=== PATIENT | male | born 1995 | race Caucasian/White ===

== ENCOUNTER 2019-05-20 08:35 | Outpatient (CLI) | payer SELFPAY | END 2019-05-20 08:36 | disposition critical access hospital (66) | LOC: EMS 08:35 | PROVIDERS: ATTEND Surgery | DX: R40.20 Unspecified coma (principal) | CPT/HCPCS: A0425; A0427 ==

== ENCOUNTER 2019-05-20 09:30 | Emergency (ER) | payer SELFPAY ==
[2019-05-20] MEDS ORDERED: SODIUM CHLORIDE 0.9% 1,000 ML IV STA (09:36)
--- NOTE | 2019-05-20 09:42 | ED Physician Documentation ---
History of Present Illness - Stated complaint Stated Complaint: OD - Chief complaint Chief Complaint: General - Additonal information Additional information: This is a 23-year-old male with a history of back pain after compression fractures last year, who presents After an accidental overdose. Patient states that this morning he took a 1/2 tablet of 30 mg Percocet that his friend bought off the street, he took this for his chronic back pain, and about 30 minutes prior to his arrival here he was in a work truck with his Colleague, when he suddenly slumped over. His colleague did not feel pulses so he pulled him out of the truck and began CPR and EMS was called. When EMS arrived he had received CPR for around 9 minutes, he was found to have agonal respirations and palpable pulses, he had miotic pupils. He was given 2 mg of Narcan and immediately awoke. He had some vomiting she also received 4 mg of Zofran. Patient is alert, oriented, he has some chest soreness, and feels slightly dizzy, but denies other complaints. He denies taking any other drugs. He denies any intent to harm himself. Review of Systems Constitutional: denies: Fever Throat: denies: Oral lesions / sores Cardiac: reports: Other (CHest soreness) Respiratory: denies: Dyspnea GI: reports: Nausea, Vomiting : denies: Dysuria Skin: denies: Rash Neurologic: denies: Focal weakness Psychiatric: denies: Suicidal PD PAST MEDICAL HISTORY - Past Medical History Musculoskeletal: Other (Compression fractures of spine) - Allergies Allergies/Adverse Reactions: Allergies Allergy/AdvReac Type Severity Reaction Status Date / Time No Known Drug Allergies Allergy Verified 05/20/19 09:32 - Living Situation Living Arrangement: reports: At home - Social History Substance Use and Type: Prescription Pills - Family History Family history: reports: Non contributory PD ED PE NORMAL - Vitals Vital signs reviewed: Yes - General General: Alert and oriented X 3, No acute distress - HEENT HEENT: Atraumatic, Other (Pupils 2mm and reactive bilaterally) - Neck Neck: Supple, no meningeal sign - Cardiac Cardiac: RRR - Respiratory Respiratory: No respiratory distress, Clear bilaterally - Abdomen Abdomen: Soft, Non tender, Non distended - Derm Derm: Warm and dry - Extremities Extremities: No deformity - Neuro Neuro: Alert and oriented X 3, income auditor 2-12 intact, No motor deficit, No sensory deficit, Normal speech - Psych Psych: Normal mood, Normal affect Results - Vitals Vitals: Vital Signs - 24 hr 05/20/19 05/20/19 05/20/19 09:32 10:33 11:22 Temperature 36.2 C L Heart Rate 69 80 65 Respiratory 15 16 17 Rate Blood Pressure 114/84 H 129/88 H 114/70 O2 Saturation 99 97 100 05/20/19 05/20/19 11:59 13:26 Temperature 96.6 C H Heart Rate 78 72 Respiratory 16 14 Rate Blood Pressure 127/78 101/73 O2 Saturation 95 99 Oxygen O2 Source Room air - EKG (time done) 9:58 Other comments: Other comments (Rate 70, rhythm sinus, axis normal. There are no ST segment elevations or depressions, no abnormal T wave inversions. Intervals within normal limits.) - Labs Labs: Laboratory Tests 05/20/19 05/20/19 09:46 09:46 WBC 9.2 RBC 4.33 L Hgb 13.2 L Hct 39.3 L MCV 90.8 MCH 30.5 MCHC 33.6 RDW 12.3 Plt Count 306 MPV 9.0 Neut # (Auto) 6.8 H Lymph # (Auto) 1.7 Kimball # (Auto) 0.5 Eos # (Auto) 0.1 Baso # (Auto) 0.0 Absolute Nucleated RBC 0.00 Nucleated RBC % 0.0 Sodium 140 Potassium 3.9 Chloride 105 Carbon Dioxide 27 Anion Gap 8.0 BUN 20 Creatinine 1.0 Estimated GFR (MDRD) 92 Glucose 112 H Calcium 8.7 Total Bilirubin 0.5 AST 55 H ALT 56 Alkaline Phosphatase 59 Total Protein 6.9 Albumin 4.0 Globulin 2.9 Albumin/Globulin Ratio 1.4 Lipase 28 - Rads (name of study) CXR Radiology: Other (No acute cardiopulmonary abnormality) PD MEDICAL DECISION MAKING - ED course Complexity details: considered differential (Opioid overdose, dysrhtymia, rib fracture, aspiration, pneumothorax) ED course: On arrival patient is alert, oriented, with no neurologic deficits and saturating in the high 90s on room air. He has some mild redness on his sternum without crepitus. CXR shows no pneumothorax or displaced fractures. EKG is unremarkable. Labs unrevealing other than mildly elevated AST - patient has no abdominal tenderness. This may be from alcohol use. Pt was observed for over 3 hours, remained awake, without hypoxia or somnolence. His chest discomfort was minimal and patient was able to urinate, ambulate, and felt very well. I discussed the risk of opioid use, particularly pills/drugs bought on the street which have varying strengths. I recommended he abstain from all drug use. Patient is appreciative of the care he received,, receptive to our counseling, and seems appropriately disturbed by his accidental overdose. I discussed return precuations and patient was discharged home in the care of his family. Departure - Departure Disposition: , Self Care Clinical Impression: Narcotic overdose Qualifiers: Encounter type: initial encounter Injury intent: accidental or unintentional Qualified Code(s): T40.601A - Poisoning by unspecified narcotics, accidental (unintentional), initial encounter Condition: Good Instructions: ED Overdose Opiate Comments: You were seen today after an accidental overdose of narcotic medications. Please do not take any narcotics that are not prescribed to you. If you develop any sleepiness or confusion, return to the emergency department immediately. Make sure that someone is watching you at home for the next day. Follow-up with your primary care provider soon as possible. Discharge Date/Time: 05/20/19 13:27
[2019-05-20 09:51] LABS: BASOPHILS % (AUTO) 0.4 %; EOSINOPHILS # (AUTO) 0.1 10^3/uL (0.0-0.7); HGB - HEMOGLOBIN 13.2 g/dL (14.0-18.0); LYMPHOCYTES # (AUTO) 1.7 10^3/uL (1.5-3.5); LYMPHOCYTES % (AUTO) 18.5 %; MEAN CORPUSCULAR HEMOGLOBIN 30.5 pg (27.0-31.0); MEAN CORPUSCULAR HGB CONC 33.6 g/dL (32.0-36.0); MEAN CORPUSCULAR VOLUME 90.8 fL (80.0-94.0); MONOCYTES # (AUTO) 0.5 10^3/uL (0.0-1.0); MONOCYTES % (AUTO) 5.1 %; NEUTROPHILS # (AUTO) 6.8 10^3/uL (1.5-6.6); NEUTROPHILS % (AUTO) 74.2 %; PLT - PLATELET COUNT 306 10^3/uL (130-450); RED BLOOD COUNT 4.33 10^6/uL (4.70-6.10); RED CELL DISTRIBUTION WIDTH 12.3 % (12.0-15.0); WHITE BLOOD COUNT 9.2 x10^3/uL (4.8-10.8)
[2019-05-20 10:13] LABS: ALBUMIN/GLOBULIN RATIO 1.4 (1.0-2.2); BILIRUBIN,TOTAL 0.5 mg/dL (0.2-1.0); CALCIUM 8.7 mg/dL (8.5-10.3); TOTAL PROTEIN 6.9 g/dL (6.7-8.2)
--- NOTE | 2019-05-20 10:16 | XRAY Report ---
Reason: CPR, assess for pneumo, fx Procedure Date: 05/20/2019 Accession Number: [id number] / [id number] Procedure: XR - Chest 2 View X-Ray CPT Code: 21346 FULL RESULT: EXAM: CHEST RADIOGRAPHY EXAM DATE: 05/20/2019 10:00 AM. CLINICAL HISTORY: CPR, assess for pneumo, fx. COMPARISON: None. TECHNIQUE: 2 views. FINDINGS: Lungs/Pleura: No focal opacities evident. No pleural effusion. No pneumothorax. Normal volumes. Mediastinum: Heart and mediastinal contours are unremarkable. Other: None. IMPRESSION: 1. Normal 2-view chest radiography. 2. No pneumothorax or rib fracture evident. RADIA
[2019-05-20] MEDS ORDERED: IBUPROFEN 600 MG TABLET PO STA (10:24)
[2019-05-20] MEDS ORDERED: ACETAMINOPHEN 325 MG TABLET PO STA (10:24)
[2019-05-20 13:27] VITALS: BP 101/73
== END 2019-05-20 13:27 | disposition home or self-care (01) ==
LOC: ED 09:30
DX: T40.2X1A Poisoning by other opioids, accidental (unintentional), initial encounter (principal); Y92.89 Other specified places as the place of occurrence of the external cause; M54.9 Dorsalgia, unspecified; G89.29 Other chronic pain
CPT/HCPCS: 36415; 51798; 71046; 80053; 83690; 85025; 93005; 96360; 99284; A9270

== ENCOUNTER 2019-10-08 13:08 | Outpatient (CLI) | payer OTHER | END 2019-10-08 23:59 | disposition short-term general hospital (02) | LOC: EMS 13:08 | PROVIDERS: ATTEND Surgery | DX: S31.119A Laceration without foreign body of abdominal wall, unspecified quadrant without penetration into peritoneal cavity, initial encounter (principal); W29.3XXA Contact with powered garden and outdoor hand tools and machinery, initial encounter; Y93.89 Activity, other specified; Y92.89 Other specified places as the place of occurrence of the external cause; Y99.0 Civilian activity done for income or pay | CPT/HCPCS: A0425; A0427 ==

== ENCOUNTER 2022-10-27 13:51 | Emergency (ER) | payer OTHER ==
[2022-10-27 14:00] VITALS: BP 135/70
[2022-10-27] MEDS ORDERED: AMOX/CLAV 875 MG/125 MG TABLET PO STA (14:38)
[2022-10-27] MEDS ORDERED: BUFFERED LIDOCAINE 10 ML SYRINGE SUBQ STA (14:38)
--- NOTE | 2022-10-27 14:40 | ED Physician Documentation ---
PD HPI WOUND RECHECK - Stated complaint Stated Complaint: DOG BITE RT HAND - Chief complaint Chief Complaint: Wound - Histroy obtained from History obtained from: Patient (26-year-old right-handed gentleman who is up-to-date on tetanus was helping in a friend's yard and the friend's dog bit him on the right hand just prior to arrival. No other injuries.) PD PAST MEDICAL HISTORY - Past Medical History Musculoskeletal: Other (Compression fractures of spine) - Present Medications Home Medications: Ambulatory Orders Medication Instructions Recorded Confirmed Amox/Clav 875/125 [Augmentin] 1 each PO Q12H #10 tablet 10/27/22 - Allergies Allergies/Adverse Reactions: Allergies Allergy/AdvReac Type Severity Reaction Status Date / Time No Known Drug Allergies Allergy Verified 10/27/22 14:00 PD ED PE NORMAL - Vitals Vital signs reviewed: Yes - General General: Alert and oriented X 3, No acute distress - Extremities Extremities: Other (SEE MDM -TEXT BOX TOO SMALL) - Neuro Neuro: Alert and oriented X 3 Results - Vitals Vitals: Vital Signs - 24 hr 10/27/22 13:56 Temperature 36.1 C L Heart Rate 82 Respiratory 16 Rate Blood Pressure 135/70 H O2 Saturation 95 Oxygen O2 Source Room air - Rads (name of study) Three-view x-ray of the right hand is unremarkable. Relevant Findings:: Final report received, EMP independent interpretation of test Procedures - Laceration (location) Right palm Length in cm: 1.5 Wound type: Linear, Into subcut fat Neurovascular status: Sensory intact, Motor intact, Vascular intact Tendon involvement: Tendon intact Anesthesia: Lidocaine 1%, With bicarb Wound preparation: Chlorhexadine, Irrigated copiously NS Skin layer closure: Nylon, Interrupted, Size #-0 - enter number (4-0), Sutures - enter # (2) Other: Tetanus UTD PD Medical Decision Making - ED course ED course: RIGHT HAND EXAM: There are couple very small puncture wounds on the dorsum of the hand. He is tender at the tip of the fourth finger with a small subungual hematoma and a blood blister on the tuft. There is couple more puncture wounds on the palm and then a larger laceration just proximal to the fourth finger. No distal neurovascular compromise of any digit and flexor and extensor tendon function is intact in all digits. Departure - Departure Disposition: 01 Home, Self Care Clinical Impression: Dog bite of right hand Condition: Good Record reviewed to determine appropriate education?: Yes Instructions: ED Bite Animal General, ED Laceration Hand Prescriptions: Amox/Clav 875/125 [Augmentin] 1 each PO Q12H #10 tablet Comments: Come back for any signs of infection which would include: Redness, swelling, drainage, increased pain, or fevers. You can wash it soap and water. Keep it covered and moist with bacitracin ointment which is available over the counter; avoid neosporin. Follow-up with your physician in About 14 days for suture removal. Discharge Date/Time: 10/27/22 15:37
--- NOTE | 2022-10-27 15:11 | XRAY Report ---
PROCEDURE: Hand 3 View RT INDICATIONS: HAND INJ TECHNIQUE: 3 views of the hand(s) acquired. COMPARISON: None FINDINGS: Bones: No fractures or dislocations. No suspicious bony lesions. Soft tissues: No suspicious soft tissue calcifications. IMPRESSION: No acute abnormality of the right hand Reviewed by: Adonis Gonzales on 10/27/2022 2:10 PM AKOLENA Approved by: Adonis Gonzales on 10/27/2022 2:10 PM AKDT Station ID: [id number]
== END 2022-10-27 15:37 | disposition home or self-care (01) ==
LOC: ED 13:51
DX: S61.451A Open bite of right hand, initial encounter (principal); W54.0XXA Bitten by dog, initial encounter; Y92.096 Garden or yard of other non-institutional residence as the place of occurrence of the external cause
CPT/HCPCS: 12001; 73130; 99283; A9270